=== PATIENT | male | born 1950 | race Caucasian/White ===

== ENCOUNTER 2017-04-14 15:09 | Emergency (ER) | payer OTHER, MEDICARE, BC ==
[2017-04-14] MEDS ORDERED: Metoclopramide 10 MG/2 ML SDV IVPUSH ONE (15:15)
[2017-04-14] MEDS ORDERED: HYDROmorphone 0.5 MG/0.5 ML Syringe IVPUSH ONE ×2 (15:15→16:13)
[2017-04-14] MEDS ORDERED: Sodium Chloride 0.9% 1,000 ML IV SCH ×2 (15:15→17:03)
[2017-04-14] MEDS ORDERED: Diphtheria,Pertussis(Acell),Tetanus Vaccine 0.5 ML SDV IM ONE (15:19)
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
[2017-04-14] MEDS ORDERED: Sodium Chloride 0.9% 10 ML Syringe FLUSH PRN (15:31)
[2017-04-14] MEDS ORDERED: Iopamidol 612 MG/ML 150 ML Bottle IVPUSH ONE (15:31)
[2017-04-14] MEDS ORDERED: Sodium Chloride 0.9% 100 ML IV SCH (15:45)
--- NOTE | 2017-04-14 16:05 | CT ---
Head CT Technique: Multiple axial sections through the brain were obtained. Intravenous contrast was not utilized. Comparison: No previous intracranial imaging. Findings: Small parenchymal hemorrhage is seen within the right frontal region measuring approximately 6.7 mm. No other areas of hemorrhage are seen. Small low density finding is noted within the right basal ganglia most likely due to old lacunar infarct. No other abnormal parenchymal densities are seen. No midline shift or mass effect is seen. Mild atherosclerotic change is seen within the left vertebral vessel and within the carotid siphons. Bone window settings were reviewed which shows no discrete calvarial abnormality. Minimal areas of mucosal thickening are seen within the maxillary sinuses which is felt to be incidental. Impression: 1. Small parenchymal hemorrhage within the right frontal region. This measures about 6.7 mm in size. 2. Minimal senescent change as noted above. 3. No additional abnormality is seen. Diagnostic code #3
--- NOTE | 2017-04-14 16:09 | CT ---
CT facial bones Technique: Multiple axial sections through the facial bones were obtained. Reconstructed coronal and sagittal images were reviewed. Comparison: No previous facial bone imaging. Findings: Slight mucosal thickening is seen within the maxillary sinuses. Other sinuses are clear. No air-fluid levels are seen. Right and left globes are symmetric. No facial bone fracture is identified. Impression: 1. Minimal sinus findings which are felt to be incidental. 2. Nothing acute is appreciated on CT study of the facial bones. Diagnostic code #2
--- NOTE | 2017-04-14 16:10 | CT ---
CT lumbar spine Technique: Multiple axial sections were obtained through the lumbar spine. Reconstructed sagittal and coronal images were reviewed. Findings: Fusion is seen of the apophyseal joints at L4-L5. Mild spondylolisthesis is seen at L4-L5. Scattered disc space narrowing is seen throughout the lumbar spine. Vacuum disc phenomena is seen within the L1-L2 and L2-3 discs. Scattered anterior endplate osteophytes are seen as well as posterior osteophytes. Scattered degenerative apophyseal change is seen. No acute fracture is seen. Impression: 1. Degenerative change. Nothing acute is appreciated on CT study of the lumbar spine. Diagnostic code #2
--- NOTE | 2017-04-14 16:16 | CT ---
CT thoracic spine Technique: Multiple axial sections were obtained through the thoracic spine. Reconstructed sagittal and coronal images were reviewed. Findings: Portion of the anterior cortex of T11 is missing. This may relate to severe osteopenia within this vertebral body but difficult to exclude an ill defined osteolytic lesion. Focal osteopenia or additional lytic lesions are seen within T7-T10. 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 No acute fracture is appreciated. No abnormal subluxation is seen. Scattered degenerative apophyseal change is noted. Impression: 1. Loss of the anterior vertebral cortex within T11. This may relate to severe osteopenia or ill defined osteolytic lesion. Less prominent focal osteopenia or additional lytic lesions within T7-T10 are noted. 2. Degenerative change as noted above. No acute fracture or abnormal subluxation is seen. Diagnostic code #9
--- NOTE | 2017-04-14 16:28 | CT ---
CT chest Technique: Multiple axial sections were obtained from above the lung apices inferiorly through the lung bases. Intravenous contrast was utilized. Comparison: No prior chest imaging. Findings: Aorta and opacified pulmonary vessels appear within normal limits. No mediastinal hemorrhage is seen. No pericardial effusion is seen. Lungs are clear with no pulmonary contusion. No pleural effusions or pneumothorax are seen. No rib fracture is identified. Severe areas of osteopenia or lytic lesions are again seen within the thoracic spine as described on thoracic spine CT exam. Impression: 1. Findings within the thoracic spine as described on thoracic spine CT are again seen. 2. Nothing acute is identified on CT study of the chest. Diagnostic code #2 CT abdomen and pelvis Technique: Multiple axial sections were obtained from above the dome of the diaphragm inferiorly through the pubic symphysis. Intravenous contrast was utilized. No oral contrast has been given. Comparison: No previous abdominal imaging. Findings: Liver shows no focal abnormality. Surgical clips are seen from prior cholecystectomy. Spleen appears within normal limits. Adrenal glands show no nodule. Pancreas is within normal limits. Kidneys show symmetric contrast enhancement without hydronephrosis or mass. Small calcification within the right kidney is seen most likely representing a very minimal nonobstructing stone. Aorta shows atherosclerotic change without aneurysmal dilatation. No retroperitoneal adenopathy or mesenteric abnormalities are seen. No pelvic mass or adenopathy is seen. No free fluid or inflammatory change is seen. Bone window settings were reviewed which shows no acute osseous abnormality within the pelvis or spine. Impression: 1. Small nonobstructing stone within the right kidney. 2. Other incidental findings. 3. Nothing acute is appreciated on CT study of the abdomen and pelvis. Diagnostic code #2
--- NOTE | 2017-04-14 17:06 | CT ---
CT cervical spine Technique: Multiple axial sections were obtained from above C1 inferiorly to the bottom of T1. Reconstructed sagittal and coronal images were reviewed. Findings: Anterior plate and screws and disc fusion is seen at C3-C4 and C4-C5. Disc space also obliterated at C5-C6. Disc space narrowing seen at C6-C7 and C7-T1. Posterior osteophytes are seen at C3-C4 and C4-C5 causing [id number] central canal stenosis. Multiple levels of neural foraminal stenosis are seen. Diffuse degenerative apophyseal change is seen throughout the cervical spine. Anterior endplate osteophytes are seen at C6-C7 and C7-T1. Degenerative change is also noted between the dens and anterior arch of C1. No fracture is seen. No abnormal subluxation is seen. Impression: 1. Degenerative change as noted above. 2. Previous surgery. 3. No acute fracture or abnormal subluxation is identified on CT study of the cervical spine. Diagnostic code #2
== END 2017-04-14 17:40 ==
LOC: JD.ED 15:09
DX: S06.2X0A Diffuse traumatic brain injury without loss of consciousness, initial encounter (principal); S06.0X0A Concussion without loss of consciousness, initial encounter; S01.21XA Laceration without foreign body of nose, initial encounter; S01.01XA Laceration without foreign body of scalp, initial encounter; S39.012A Strain of muscle, fascia and tendon of lower back, initial encounter; S13.9XXA Sprain of joints and ligaments of unspecified parts of neck, initial encounter; W22.11XA Striking against or struck by driver side automobile airbag, initial encounter; V49.40XA Driver injured in collision with unspecified motor vehicles in traffic accident, initial encounter; Z23 Encounter for immunization
CPT/HCPCS: 36415; 70450; 70486; 71260; 72125; 72128; 72131; 74177; 80053; 82150; 85025; 85610; 85730; 90471; 90715; 93005; 96361; 96374; 96375; 99285; J1170; J2765; J7030; J7040; J7050; Q9967

== ENCOUNTER 2022-02-03 14:23 | Emergency (ER) | payer MEDICARE, BC | END 2022-02-03 16:23 | disposition home or self-care (01) | LOC: SUPCPDRO 14:23 → JD.ED 14:23 | DX: S39.94XA Unspecified injury of external genitals, initial encounter (principal); K21.9 Gastro-esophageal reflux disease without esophagitis; E11.9 Type 2 diabetes mellitus without complications; Z79.899 Other long term (current) drug therapy; Z79.84 Long term (current) use of oral hypoglycemic drugs; Z86.16 Personal history of COVID-19; Z90.49 Acquired absence of other specified parts of digestive tract; W01.198A Fall on same level from slipping, tripping and stumbling with subsequent striking against other object, initial encounter | CPT/HCPCS: 36415; 85014; 85018; 99283 ==